=== PATIENT | female | born 1970 | race Hispanic/Latino ===

== ENCOUNTER 2024-07-13 21:18 | Emergency (ER) | payer OTHER ==
[~2024-07-13] VITALS: Ht 162.6 cm; Wt 71.7 kg
[2024-07-13] MEDS: HYDROcodone/APAP 5/325 1 TAB TABLET PO ONE (21:42)
[2024-07-13] MEDS ORDERED: IBUP-2077 PO (21:52)
[2024-07-13 22:02] VITALS: BP 124/72; PULSE 78; RESP 17; TEMP 97.9; O2SAT 98
== END 2024-07-13 22:12 | disposition home or self-care (01) ==
LOC: EDH 21:18
DX: S82.64XA Nondisplaced fracture of lateral malleolus of right fibula, initial encounter for closed fracture (principal); W01.0XXA Fall on same level from slipping, tripping and stumbling without subsequent striking against object, initial encounter; Y93.01 Activity, walking, marching and hiking; Y92.89 Other specified places as the place of occurrence of the external cause; Y99.8 Other external cause status
CPT/HCPCS: 29515; 73610

== ENCOUNTER 2025-05-10 18:17 | Emergency (ER) | payer OTHER, MEDICARE ==
[~2025-05-10] VITALS: Ht 162.6 cm; Wt 70.3 kg
[~2025-05-10 18:17] MED LIST: IBUP-2077 PO
--- NOTE | 2025-05-10 19:16 | NUR ---
UA CUP PROVIDED
--- NOTE | 2025-05-10 19:40 | EKG ---
[facility] Test Date: 2025-05-10 Test Time: 19:36:25 Pat Name: JAROD SANDRA Department: [facility] Room: Gender: F Blind Escort: [id number] : 1970 Requested By: WENDY ARCE Order Number: [id number] Reading MD: Ceasar Barrios Measurements Intervals [place] Rate: 68 P: 53 IA: 128 QRS: 13 QRSD: 77 T: 18 QT: 401 QTc: 426 Interpretive Statements Sinus arrhythmia Probable left atrial enlargement Low voltage, precordial leads No previous ECG available for comparison Electronically Signed On 05-11-2025 23:58:43 CDT by Ceasar Barrios Please click the below link to view image of tracing.
[2025-05-10 19:50] LABS: IMMATURE GRANULOCYTE ABSOLUTE 0.03 K/uL (0-1); NUCLEATED RED BLOOD CELLS 0.0 % (0.0-0.19); PLATELET COUNT (AUTO) 255 K/uL (130-400); RED BLOOD CELL COUNT(AUTO) 5.09 MIL/uL (4.00-5.50); RED CELL DISTRIBUTION WIDTH 12.7 % (11.0-15.5); WHITE BLOOD COUNT (AUTO) 8.5 K/uL (4.8-10.8)
[2025-05-10 19:58] LABS: CREATININE 0.6 mg/dL (0.5-1.0); GLOMERULAR FILTR. RATE CALC 107.0 mL/min (>90); GLUCOSE,RANDOM 108.0 mg/dL (70-105); SODIUM SERUM 141.0 mmol/L (136-145); UREA NITROGEN, BLOOD 11.0 mg/dL (7-18)
[2025-05-10 20:07] LABS: CREATINE KINASE, TOTAL 72.0 U/L (21-232)
--- NOTE | 2025-05-10 20:42 | NUR ---
PT HAS NOT YET COLLECTED A URINE SAMPLE. EXPLAINED NEED TO PT. PT VERBALIZED UNDERSTANDING WITH VERBAL TEACHBACK. SHOWN TO RESTOOM
[2025-05-10 20:59] LABS: APPEARANCE,URINE CLEAR (CLEAR); GLUCOSE, URINE (UA) NEGATIVE (NEGATIVE); LEUKOCYTE ESTERASE ,URINE NEGATIVE Leu/uL (NEGATIVE); NITRATE,URINE NEGATIVE (NEGATIVE); OCCULT BLOOD,URINE NEGATIVE (NEGATIVE)
[2025-05-10 21:04] LABS: ADD UA MICROSCOPIC NO
[2025-05-10] MEDS: 0.9%NACL 1000ML 1,000 ML IV ONE (21:05)
--- NOTE | 2025-05-10 21:18 | HMCIMG ---
EXAM: CR Chest, 1 View. CLINICAL HISTORY: dizzy COMPARISON: None provided. FINDINGS: LUNGS: There is no mass, infiltrate, or acute pulmonary abnormality. PLEURAL SPACES: No evidence of pleural effusion or pneumothorax. MEDIASTINUM: The cardiomediastinal silhouette is within normal limits. BONES: No acute osseous abnormality. IMPRESSION: No acute cardiopulmonary pathology is evident. /[place]
--- NOTE | 2025-05-10 22:48 | HMCIMG ---
EXAM: Non-contrast CT examination of the Brain CLINICAL HISTORY: Near syncope. Dizziness. TECHNIQUE: Thin collimated axial CT images of the brain were obtained, with sagittal and coronal reformatted images also submitted. CT scan done according to ALARA (As Low as Reasonably Achievable). CONTRAST USED: None. COMPARISON: None provided. FINDINGS: No acute intracranial abnormality is present. No acute cortical infarction, hemorrhage, mass, or mass effect. No hydrocephalus or abnormal extra-axial fluid collections. The posterior fossa is unremarkable. The skull base and calvarium are intact. The included portions of the paranasal sinuses and mastoid air cells are clear. IMPRESSION: No acute intracranial abnormality is present. /[place]
--- NOTE | 2025-05-10 23:08 | ERN ---
ED Note History of Present Illness Stated Complaint: GBW, NEAR SYNCOPE Chief Complaint: Multiple Complaints Time Seen by MD: 19:18 Time Seen by Midlevel: 19:18 Dictation: The patient is a 55-year-old female with a history of , back surgery who presents to the emergency department with complaints of near-syncope, lightheadedness, generalized weakness onset 4:30 p.m.. Patient reports she was in the shower when all of sudden her vision went black and she felt like she was going to pass out but was able to hold herself up. Denies any chest pain or shortness of breath. Denies any fevers, nausea vomiting or diarrhea. Allergies: Coded Allergies: No Known Allergies (Unverified Allergy, Unknown, 07/13/24) Home Meds Active Scripts Ibuprofen (Ibuprofen 800 mg Tab) 800 Mg Tab, 800 MG PO Q8H PRN for fever or pain, #30 TAB 0 Refills Prov:ROM MYRICK Jarad [employer] 07/13/24 Past Medical History Past Medical History: Other Additional Past Medical Hx: HX OF BREAST CA, RIGHT Surgical History: Other, Surgical History Other: RT MASTECTOMY; BACK SX; RT BREAST RECONSTRUCTION History: Not Applicable RN Note Reviewed/Agreed w/PFSH: Yes Review of System Dictation Constitutional: Negative for fever,chills, and weight loss Eyes: Negative for injury, pain,redness, and discharge ENT: Negative for injury,pain or swelling Cardiovascular: Negative for chest pain, palpitations, and edema Respiratory: Negative for shortness of breath, cough, and wheezing, Abdomen/GI: Negative for abdominal pain, nausea, vomiting, diarrhea, and constipation Back: Negative for injury and pain : Negative for injury, bleeding and discharge MS/Extremity: Negative for injury and deformity Skin: Negative for rash, and discoloration Neuro: Negative for headache, numbness, tingling, and seizure positive for weakness, dizziness Psych: Negative for suicide ideation, homicidal ideation, and hallucinations Initial Vital Sign VS Vital Signs Date Time Temp Pulse Resp B/P (MAP) Pulse Ox O2 Delivery O2 Flow Rate FiO2 05/10/25 19:14 97.9 92 18 134/73 98 Room Air 05/10/25 20:55 0 21 Physical Exam Dictation Vital Signs reviewed General Appearance: Alert, oriented x 3, no acute distress, well developed, nourished. Head and Face: non-traumatic. Eyes: PERRL, pink conjunctivas, eyelid no trauma, anterior chamber with arcus senilis. Ears: Pinnas intact and no signs of trauma or erythema ear canals clear and no discharge TM no erythema Nose: No discharge, no bleeding. Oropharynx: Mouth normal, tongue pink. pharynx clear,no erythema, tonsils no exudates, no abscesses noted, mucous membrane moist Neck: Supple, non-tender, no thyromegaly, no masses, no JVD, no bruits Breast:Deferred Chest:No tenderness, no crepitus, no paradoxical movement, no retractions Lungs:Clear, well-ventilated, symmetric, no rales, no wheezing, no rhonchi, no stridor, good breath sounds bilaterally Heart: Regular rate, regular rhythm, no murmur, no gallops Vascular: no peripheral edema, Abdomen: Soft, positive bowel sounds, nondistended, no guarding, nontender, no rebound, no masses no hepatomegaly, no splenomegaly, no Sotomayor's sign, no hernias. Rectal: Deferred Genital: Deferred Neurological: Normal speech, motor function intact, sensory function intact , upper extremities equal in strength, lower extremities equal in strength Musculoskeletal: Neck nontender, full range of motion, back nontender, full range of motion, Extremities: nontender, full range of motion Skin: Color pink, dry, no turgor, no rash, no lacerations, no abrasions, no contusions. Lymphatic: Deferred Results (Laboratory/Radiology) Laboratory/Radiology Laboratory Tests Test 05/10/25 19:43 05/10/25 20:50 White Blood Count 8.5 K/uL (4.8-10.8) Red Blood Count 5.09 MIL/uL (4.00-5.50) Hemoglobin 15.6 g/dL (12.0-16.0) Hematocrit 45.8 % (36-48) Mean Corpuscular Volume 90.0 fL (79-99) Mean Corpuscular Hemoglobin 30.6 pg (27.0-33.0) Mean Corpuscular Hemoglobin Concent 34.1 g/dL (32.0-36.0) Red Cell Distribution Width 12.7 % (11.0-15.5) Platelet Count 255 K/uL (130-400) Mean Platelet Volume 10.9 fL (7.5-10.5) H Immature Granulocyte % (Auto) 0.4 % (0-1) Neutrophils (%) (Auto) 80.3 % (40.0-77.0) H Lymphocytes (%) (Auto) 13.4 % (21.0-51.0) L Monocytes (%) (Auto) 5.2 % (3.0-13.0) Eosinophils (%) (Auto) 0.1 % (0.0-8.0) Basophils (%) (Auto) 0.6 % (0.0-5.0) Neutrophils # (Auto) 6.8 K/uL (1.8-7.7) Lymphocytes # (Auto) 1.1 K/uL (1.0-4.8) Monocytes # (Auto) 0.4 K/uL (0.1-1.0) Eosinophils # (Auto) 0.01 K/uL (0.00-0.70) Basophils # (Auto) 0.05 K/uL (0.00-0.20) Absolute Immature Granulocyte (auto 0.03 K/uL (0-1) Nucleated Red Blood Cells 0.0 % (0.0-0.19) Sodium Level 141 mmol/L (136-145) Potassium Level 4.4 mmol/L (3.5-5.1) Chloride Level 104 mmol/L (101-111) Carbon Dioxide Level 28 mmol/L (21-32) Blood Urea Nitrogen 11 mg/dL (7-18) Creatinine 0.6 mg/dL (0.5-1.0) Glomerular Filtration Rate Calc 107 mL/min (>90) Random Glucose 108 mg/dL (70-105) H Total Calcium 9.7 mg/dL (8.5-10.1) Total Creatine Kinase 72 U/L (21-232) Troponin I High Sensitivity < 4 ng/L (4-50) L Urine Color COLORLESS (YELLOW) Urine Appearance CLEAR (CLEAR) Urine pH 5.0 (5.0-8.0) Urine Specific [place] 1.010 (1.001-1.031) Urine Protein NEGATIVE mg/dL (NEGATIVE) Urine Glucose (UA) NEGATIVE mg/dL (NEGATIVE) Urine Ketones NEGATIVE mg/dL (NEGATIVE) Urine Occult Blood NEGATIVE (NEGATIVE) Urine Nitrate NEGATIVE (NEGATIVE) Urine Bilirubin NEGATIVE mg/dL (NEGATIVE) Urine Urobilinogen 0.2 mg/dL (0.2-1.0) Urine Leukocyte Esterase NEGATIVE Trini/uL REASON: dizzy ORDERING PHYSICIAN: WENDY ARCE PROCEDURE: CXR1VW - CHEST 1VW EXAM: CR Chest, 1 View. CLINICAL HISTORY: dizzy COMPARISON: None provided. FINDINGS: LUNGS: There is no mass, infiltrate, or acute pulmonary abnormality. PLEURAL SPACES: No evidence of pleural effusion or pneumothorax. MEDIASTINUM: The cardiomediastinal silhouette is within normal limits. BONES: No acute osseous abnormality. IMPRESSION: No acute cardiopulmonary pathology is evident. /[place] REASON: near syncope, dizzy ORDERING PHYSICIAN: WENDY ARCE PROCEDURE: HEAD WO - CT HEAD/BRAIN W/O CONTRAST EXAM: Non-contrast CT examination of the Brain CLINICAL HISTORY: Near syncope. Dizziness. TECHNIQUE: Thin collimated axial CT images of the brain were obtained, with sagittal and coronal reformatted images also submitted. CT scan done according to ALARA (As Low as Reasonably Achievable). CONTRAST USED: None. COMPARISON: None provided. FINDINGS: No acute intracranial abnormality is present. No acute cortical infarction, hemorrhage, mass, or mass effect. No hydrocephalus or abnormal extra-axial fluid collections. The posterior fossa is unremarkable. The skull base and calvarium are intact. The included portions of the paranasal sinuses and mastoid air cells are clear. IMPRESSION: No acute intracranial abnormality is present. /[place] Labs Reviewed?: Yes EKG: (+) rhythm (Sinus arrhythmia) EKG Comment: Date:05/10/2025 Time:1935 Ventricular rate:68 CT interval:128 QRS duration:77 QT/QTc:401/426 EKG interpretation: Sinus arrhythmia Reviewed by ED Attending no STEMI ED Course ED Course Orders Procedure Category Date Status Time Cbc With Differential LAB 05/10/25 Complete 19:22 Chest 1vw RAD 05/10/25 Resulted 19:22 12 Lead Ekg Tracing- EKG 05/10/25 Complete Technical 19:22 0.9%Nacl 1000ml (Ns PHA 05/10/25 Complete 1000ml) 19:30 Creatine Kinase, Total LAB 05/10/25 Complete 19:22 Troponin I High LAB 05/10/25 Complete Sensitivity 19:22 Urinalysis Profile LAB 05/10/25 Complete 19:22 Basic Metabolic Panel LAB 05/10/25 Complete 19:22 Orthostatic Vital CPOE 05/10/25 Transmitted Signs 19:22 Ct Head/Brain W/O CT 05/10/25 Resulted Contrast 19:32 Current Medications Medications (Trade) Dose Ordered Sig/Porsha Route PRN Reason Start Time Stop Time Status Last Admin Dose Admin Sodium Chloride 1,000 ml @ 0 mls/hr ONCE ONCE IV 05/10/25 19:30 05/10/25 19:31 DC 05/10/25 21:05 Vital Signs Date Time Temp Pulse Resp B/P (MAP) Pulse Ox O2 Delivery O2 Flow Rate FiO2 05/10/25 21:46 97.9 83 18 163/81 98 Room Air* 0 05/10/25 21:45 97.9 78 18 155/69 98 Room Air* 0 05/10/25 21:44 97.9 75 18 139/68 98 Room Air* 0 05/10/25 20:55 97.9 88 18 132/68 98 Room Air* 0 05/10/25 19:14 97.9 92 18 134/73 98 Room Air Medical Decision Making MDM The patient is a 55-year-old female with a history of , back surgery who presents to the emergency department with complaints of near-syncope, lightheadedness, generalized weakness onset 4:30 p.m.. Patient reports she was in the shower when all of sudden her vision went black and she felt like she was going to pass out but was able to hold herself up. Denies any chest pain or shortness of breath. Denies any fevers, nausea vomiting or diarrhea. CBC showed no leukocytosis, no anemia, chemistry showed no electrolyte imbalance, normal renal function, negative troponin, CT head showed no acute pathology, x-ray showed normal sinus rhythm. EKG showed sinus arrhythmia with a rate of 68. Patient received IV fluids in ER. Reports feeling better. On physical exam patient is in no acute distress, continues neurologically intact. Stable vital signs. Patient instructed to follow up with PCP. Informed patient that if she continues to having these episode she might need a Holter monitor to monitor for any arrhythmias. Labs and imaging discussed with the patient who agrees to be discharged and follow up with PCP. Disposition delayed due to patient in the lobby for an hour due to high since his in ER., pending imaging radiating Differential diagnosis: Orthostatic hypotension, intracerebral hemorrhage, acute kidney injury, dehydration Need for hospitalization: Patient does not meet criteria for hospitalization. There are no social concerns with this patient. DX & DISP Disposition: Discharge Departure Impression: Primary Impression: Near syncope Additional Impression: Light-headedness Condition: Stable Additional Instructions: Your labs were unremarkable. Use imaging were normal. Please continue oral hydration at home. Follow up with your primary doctor. If anything worsens. Please return to ER. FOLLOW-UP WITH PRIMARY CARE PROVIDER IN 1 TO 2 DAYS. TAKE MEDICATIONS DIRECTED HERE IN THE EMERGENCY ROOM. OKAY TO CONTINUE HOME MEDICATIONS UNLESS OTHERWISE DISCUSSED DURING YOUR VISIT IN THE EMERGENCY ROOM TODAY. RETURN TO YOUR NEAREST EMERGENCY ROOM IF SYMPTOMS WORSEN OR IF THERE IS NO IMPROVEMENT. CALL 911 IF YOU NEED IMMEDIATE ASSISTANCE. TAKE TYLENOL [id number] NEEDED AND IF NO CONTRAINDICATIONS ARE PRESENT. INCREASE ORAL HYDRATION. A WOUND CULTURE OR URINE CULTURE WAS ORDERED HERE IN THE EMERGENCY ROOM DEPARTMENT PLEASE FOLLOW-UP WITH PRIMARY CARE PROVIDER AND ADVISE THEM TO GET REPEAT PORTS FROM OUR FACILITY. IF YOU HAD ANY CHARLINE WRAP/SPLINTS THAT WERE APPLIED HERE, PLEASE DO NOT REMOVE THEM UNTIL YOU SEE YOUR PRIMARY CARE OR SPECIALTY. Referrals: KAMI TA DO (PCP) Time of Disposition: 23:07 I have reviewed the case, and I agree with, Diagnosis and Plan WENDY ARCE May 10, 2025 23:07
[2025-05-10 23:21] VITALS: BP 152/77; PULSE 79; RESP 18; TEMP 98.2; O2SAT 99
== END 2025-05-10 23:22 | disposition home or self-care (01) ==
LOC: EDH 18:17
DX: R55 Syncope and collapse (principal); R42 Dizziness and giddiness
CPT/HCPCS: 99285; 70450; 71045; 82550; 84484; 80048; 85025; 81003; 36415; 93005; J7030